=== PATIENT | male | born 1950 | race Caucasian/White ===

== ENCOUNTER 2023-05-23 15:32 | Observation (INO) | payer MEDICARE, SELFPAY ==
[2023-05-23] VITALS (13 sets, daily range): BP systolic 115–142; BP diastolic 53–77; PULSE 65–92; RESP 16–20; TEMP 36.4–36.8; O2SAT 93–99; BMI 28.5
--- NOTE | ~2023-05-23 | CT_ITS ---
Non-contrast CT scan of the Abdomen and Pelvis Clinical indication: Right ureteral stone Technique: 2.5 mm axial scans were obtained through the abdomen and pelvis without intravenous or or al contrast. Dose reduction technique was used on this scan by utilizing automated exposure control a nd iterative reconstruction technique. The dose-length product (DLP) was 1402.46 mGy-cm. Findings: Images through the lung bases reveal minimal bibasilar atelectatic change. There is a 3 mm stone at the mid right ureter (axial image 120), with mild right hydronephrosis is le jett. Multiple bilateral nonobstructing renal stones are present otherwise, measuring up to 1.1 cm in diameter in the right kidney, and 7 mm in diameter and the left kidney. There is right perinephric st randing. No left ureteral stone or left hydronephrosis. The liver, spleen, pancreas, gallbladder, and adrenals appear normal. There are mild atherosclerotic changes of the aorta. There is no evidence of bowel obstruction. Normal appendix. Images through the pelvis were performed. There is no evidence of ascites or lymphadenopathy. Urinary bladder unremarkable. Prostate gland and seminal vesicles are unremarkable. Impression: 3 mm mid right ureteral stone with mild right hydronephrosis. Multiple additional bilateral nonobstructing renal stones, as detailed above. Reviewed, dictated and finalized at location . Impression: 3 mm mid right ureteral stone with mild right hydronephrosis. Multiple additional bilateral nonobstructing renal stones, as detailed above.
--- NOTE | ~2023-05-23 | XR_ITS ---
Supine and upright views of the abdomen Clinical history: Right ureteral stone Findings: Bowel gas pattern is nonspecific. No evidence for obstruction or free air. There are probab le right renal stones measuring up to 9 mm. Osseous structures are intact. Impression: Right renal stones, as detailed above. Reviewed, dictated and finalized at [facility]. Impression: Right renal stones, as detailed above.
--- NOTE | ~2023-05-23 | XR_ITS ---
EXAMINATION: XR retrograde pyelo w/stent RT DATE: 05/23/2023 16:15 CDT INDICATION: RT SIDE SPECIAL . TECHNIQUE: 6 fluoroscopic images of the abdomen and pelvis were obtained during right retrograde pyel ography with stent placement performed by the surgeon. I was not present in the operating room. Fluor oscopy exposure time was 39.6 seconds. DAP [id number] [id number]. COMPARISON: CT abdomen and pelvis, same date FINDINGS: Catheter and wire access into the right collecting system. Post stent placement the proximal coil is located within the right renal pelvis. Imaging of the distal coil not provided. IMPRESSION: Fluoroscopic documentation of right retrograde pyelography with stent placement. Please refer to the operative note for complete procedural details . Reviewed, dictated and finalized at location [facility]. IMPRESSION: Fluoroscopic documentation of right retrograde pyelography with stent placement . Please refer to the operative note for complete procedural details .
--- NOTE | 2023-05-23 00:08 | ADMGEN ---
This patient, Josie Sifuentes, was admitted to Medical Room 255-01. Patient/family oriented to hospital policies and general routines including ID bracelet, bed and alarms, visiting hours, pain management, procedures, bathroom and other care routines, personal items, smoking policy, room service/diet, and visiting hours. Information on how to activate the Rapid Response Team has been discussed. Patient/Family are encouraged to report perceived risks to care and to ask questions if they do not understand what they are told or what they should do.
[2023-05-23] MEDS: HYDROmorphone HCL INJ (*CRX) 1 MG/ML SYR IV PUSH ×2 (04:00→08:22)
[2023-05-23] MEDS: SODIUM CHLORIDE 0.9% IV 1,000 ML 75 ML IV CONT ×2 (04:00→08:35)
[2023-05-23 07:22] LABS: Basophils Absolute Auto 0.1 K/mm3 (0.0-0.1); Basophils Percent Auto 0.7 % (0.2-1.2); Eosinophils Absolute Auto 0.3 K/mm3 (0-0.3); Eosinophils Percent Auto 2.4 % (0-4.4); Hematocrit 38.7 % (42.0-52.0); Hemoglobin 12.3 g/dL (14.0-18.0); Immature Granulocyte Absolute 0.03 K/mm3 (0.00-0.031); Immature Granulocyte Percent A 0.3 % (0-0.5); Lymphocytes Absolute Auto 1.01 K/mm3 (0.9-3.2); Lymphocytes Percent Auto 9.3 % (18.3-44.2); Mean Corpuscular HGB Conc 31.8 g/dl (32-36); Mean Corpuscular Volume 97.5 fl (80-100); Mean Platelet Volume 10.6 fl (7.4-10.4); Monocytes Absolute Auto 1.5 K/mm3 (0.1-0.6); Monocytes Percent Auto 13.5 % (2.6-8.5); Neutrophils Percent Auto 73.8 % (45.5-73.1); Platelet Count Result 196 k/mm3 (150-375); Red Blood Count 3.97 M/mm3 (4.6-6.20); Red Cell Distribution Width 11.8 % (11.5-14.5); White Blood Count 10.8 K/mm3 (4.5-10.0)
[2023-05-23 07:32] LABS: Anion Gap 6 mmol/L (8-16); Blood Urea Nitrogen 24 mg/dL (9-20); Calcium 9.1 mg/dL (8.4-10.2); Carbon Dioxide 23 mmol/L (22-30); Chloride 107 mmol/L (98-107); Estimated CRCL calculation 39 ml/min; Estimated Glomerular Filt Rate 37; Glucose 119 mg/dL (65-110); Potassium 4.3 mmol/L (3.4-5.0); Sodium 136 mmol/L (137-145)
[2023-05-23 07:34] LABS: Prothrombin Time 13.9 Seconds (11.1-14.7)
[2023-05-23 07:35] LABS: Partial Thromboplastin Time 24.5 SECONDS (22.3-36.8)
--- NOTE | 2023-05-23 07:49 | PM.IMHP ---
H&P: HPI History of Present Illness Date/Time: 05/23/23 07:49 Chief Complaint: flank pain Narrative: 73 year old male with h/o HF p/w flank pain at outlying facility found to have kidney stone. He was transferred to our facility for urology consultation and care. He was taken to the OR by urology for cystoscopy and eval for stent placement. No fevers, chills, NVD, CP, SOB. Review of Systems Review of Systems: 12 point review of systems was assessed and was negative except as noted in the HPI [facility] Past Medical History Medical History (Updated 05/23/23 @ 16:47 by Mounika Patel DO) Atrial fibrillation CAD (coronary artery disease) CHF (congestive heart failure) EF 35% Diabetes type 2, controlled Hyperlipidemia Hypertension Family History Family History Father Sepsis Mother Breast cancer Social History Social History Smoking status: Former smoker Tobacco type: cigarettes Smoking end date: 05/23/23 Alcohol intake: never Substance use: never Lack of Transportation: No Lack of Food: Never True Current Housing: I Have Housing Concerned About Future Housing: No Difficulty Paying Gas/Electric Bills: No Difficulty Paying for Meds: No Currently Unemployed: No Education: Master's Degree or Higher Difficulty w/ Childcare or Family Care: No Spiritual care concerns: No Meds Home Medications and Allergies Home Medications Medication Instructions Recorded Confirmed Type Centrum Silver 1 tablet PO DAILY 05/23/23 05/23/23 History ProAir HFA 2 puff inhalation HS 05/23/23 05/23/23 History aspirin 81 mg tablet 81 mg PO DAILY 05/23/23 05/23/23 History atorvastatin 40 mg tablet 40 mg PO HS 05/23/23 05/23/23 History carvedilol 12.5 mg tablet 12.5 mg PO BID 05/23/23 05/23/23 History lorazepam 0.5 mg tablet 0.5 mg PO PRN PRN sleep/anxiety 05/23/23 05/23/23 History metformin 500 mg tablet,extended 1,000 mg PO BID 05/23/23 05/23/23 History release 24 hr montelukast 10 mg tablet 10 mg PO HS 05/23/23 05/23/23 History nitroglycerin 0.4 mg sublingual 0.4 mg sublingual PRN PRN Chest 05/23/23 05/23/23 History tablet Pain ropinirole 0.25 mg tablet 0.25 mg PO HS 05/23/23 05/23/23 History sacubitril 24 mg-valsartan 26 mg 0.5 tablet PO BID 05/23/23 05/23/23 History tablet (Entresto) spironolactone 25 mg tablet 12.5 mg PO DAILY 05/23/23 05/23/23 History zinc gluconate 50 mg tablet 50 mg PO DAILY 05/23/23 05/23/23 History Allergies Allergy/AdvReac Type Severity Reaction Status Date / Time No Known Allergies Allergy Verified 05/23/23 04:47 Vital Signs Vital Signs - 24 hr 05/23/23 00:53 05/23/23 04:45 05/23/23 05:00 Temperature 98.0 F Pulse Rate 66 66 Respiratory Rate 20 20 Blood Pressure 142/71 H Pulse Oximetry 98 98 Oxygen Delivery Room Air Nasal Cannula Oxygen Flow Rate 1 05/23/23 05:55 Temperature 98.2 F Pulse Rate 79 Respiratory Rate 16 Blood Pressure 121/65 Pulse Oximetry 93 Oxygen Delivery Oxygen Flow Rate Exam Narrative: General: No acute distress, alert and oriented per baseline HEENT: Atraumatic, normocephalic, mucous membranes moist CV: Regular rate and rhythm, S1, S2 Lungs: Clear to auscultation bilaterally, no rales or crackles noted, no wheezes, good air entry Abdomen: Soft, nontender, nondistended Extremities: Normal to inspection Skin: No rashes noted, no lesions or wounds seen Psych: Euthymic, normal affect H&P: Results Labs Labs: [facility] 05/23/23 07:09 Sodium 136 L Potassium 4.3 Chloride 107 Carbon Dioxide 23 BUN 24 H Creatinine 1.80 H Glucose 119 H Calcium 9.1 Assessment and Plan Assessment and plan (1) Right ureteral calculus: Code(s): N20.1 - Calculus of ureter Status: Acute Assessment and Plan: Appreciate urological consultation, in cystosc
[2023-05-23] MEDS: DEXTROSE 5%/0.45% SOD CHL 1,000 ML 100 ML IV CONT (08:15)
[2023-05-23 08:21] LABS: Glucose Point of Care 130 mg/dl (65-105)
[2023-05-23] MEDS: carvediloL 12.5 MG TABLET PO ×2 (09:08→17:45)
[2023-05-23 13:13] LABS: Glucose Point of Care 134 mg/dl (65-105)
--- NOTE | 2023-05-23 14:05 | PC.NURSE ---
To OR via stretcher.
--- NOTE | 2023-05-23 14:23 | WPDANESEPPF ---
Anes - Initial Pre Proc Eval Procedure: Operation Date: 05/23/23 16:30 Proposed Procedures p Cystoscopy, Right Ureteroscopy, Possible Right Retrograde Pyelogram, Possible Right Stone Extraction, Possible Right Stent Placement, Possible Holmium Laser Procedure - Arturo Tamayo MD Date/Time: 05/23/23 14:23 Surgeon: Klaus Hurley MD Pre Op Diagnosis: JEOVANY, Retained Kidney Stone Patient Data Age: 73 Gender: M Height: 1.88 m Weight: 100.9 kg Last Vital Signs Temp 36.8 C 05/23/23 05:55 Pulse 80 05/23/23 09:08 Resp 16 05/23/23 08:22 BP 121/65 05/23/23 05:55 Pulse Ox 93 05/23/23 08:22 O2 Del Method Nasal Cannula 05/23/23 08:22 O2 Flow Rate 1 05/23/23 08:22 Allergies Allergy/AdvReac Type Severity Reaction Status Date / Time No Known Allergies Allergy Verified 05/23/23 04:47 Home Medications Medication Instructions Recorded Confirmed Type Centrum Silver 1 tablet PO DAILY 05/23/23 05/23/23 History ProAir HFA 2 puff inhalation HS 05/23/23 05/23/23 History aspirin 81 mg tablet 81 mg PO DAILY 05/23/23 05/23/23 History atorvastatin 40 mg tablet 40 mg PO HS 05/23/23 05/23/23 History carvedilol 12.5 mg tablet 12.5 mg PO BID 05/23/23 05/23/23 History lorazepam 0.5 mg tablet 0.5 mg PO PRN PRN sleep/anxiety 05/23/23 05/23/23 History metformin 500 mg tablet,extended 1,000 mg PO BID 05/23/23 05/23/23 History release 24 hr montelukast 10 mg tablet 10 mg PO HS 05/23/23 05/23/23 History nitroglycerin 0.4 mg sublingual 0.4 mg sublingual PRN PRN Chest 05/23/23 05/23/23 History tablet Pain ropinirole 0.25 mg tablet 0.25 mg PO HS 05/23/23 05/23/23 History sacubitril 24 mg-valsartan 26 mg 0.5 tablet PO BID 05/23/23 05/23/23 History tablet (Entresto) spironolactone 25 mg tablet 12.5 mg PO DAILY 05/23/23 05/23/23 History zinc gluconate 50 mg tablet 50 mg PO DAILY 05/23/23 05/23/23 History Laboratory Tests 05/23/23 05/23/23 05/23/23 07:09 08:09 13:09 WBC 10.8 H K/mm3 (4.5-10.0) RBC 3.97 L M/mm3 (4.6-6.20) Hgb 12.3 L g/dL (14.0-18.0) Hct 38.7 L % (42.0-52.0) MCV 97.5 fl (80-100) MCH 31.0 pg (26-34) MCHC 31.8 L g/dl (32-36) RDW 11.8 % (11.5-14.5) Plt Count 196 k/mm3 (150-375) MPV 10.6 H fl (7.4-10.4) Immature Gran % (Auto) 0.3 % (0-0.5) Neut % (Auto) 73.8 H % (45.5-73.1) Lymph % (Auto) 9.3 L % (18.3-44.2) [place] % (Auto) 13.5 H % (2.6-8.5) Eos % (Auto) 2.4 % (0-4.4) Baso % (Auto) 0.7 % (0.2-1.2) Lymph # (Auto) 1.01 K/mm3 (0.9-3.2) [place] # (Auto) 1.5 H K/mm3 (0.1-0.6) Eos # (Auto) 0.3 K/mm3 (0-0.3) Baso # (Auto) 0.1 K/mm3 (0.0-0.1) Abs Immat Gran (auto) 0.03 K/mm3 (0.00-0.031) Absolute Neuts (auto) 8.0 H K/mm3 (1.3-6.7) Absolute Nucleated RBC 0.0 K/mm3 (0.0-0.012) Nucleated RBC % 0.0 % (0.0-0.2) PT 13.9 Seconds (11.1-14.7) INR 1.0 APTT 24.5 SECONDS (22.3-36.8) Sodium 136 L mmol/L (137-145) Potassium 4.3 mmol/L (3.4-5.0) Chloride 107 mmol/L (98-107) Carbon Dioxide 23 mmol/L (22-30) Anion Gap 6 L mmol/L (8-16) BUN 24 H mg/dL (9-20) Creatinine 1.80 H mg/dL (0.7-1.3) Estim Creat Clear Calc 39 ml/min Estimated GFR 37 L (59 - ) Glucose 119 H mg/dL (65-110) POC Capillary Glucose 130 H mg/dl 134 H mg/dl (65-105) (65-105) Calcium 9.1 mg/dL (8.4-10.2) Patient hx anesthesia problems: none Family hx anesthesia problems: none Results Review: All pre-operative results and documents have been reviewed as part of the pre-operative evaluation. [facility] Past Medical History Medical History (Updated 05/23/23 @ 14:25 by Clay Carballo
[2023-05-23] MEDS: LACTATED RINGERS 1,000 ML 30 ML IV CONT (14:35)
[2023-05-23] MEDS: fentaNYL CITRATE INJ (*CRX) 100 MCG/2 ML VIAL 25 MCG IV PUSH (14:36)
--- NOTE | 2023-05-23 15:10 | WPDHPUPDATE1 ---
History and Physical Update Update Date/Time: 05/23/23 15:10 History and Physical has been reviewed, including an updated exam of the patient. There are NO changes in the patient's condition. Risks, benefits, and alternatives have been discussed and questions answered. Patient agrees to proceed with procedure. Proceed with cystoscopy, right retrograde, right ureteroscopy with stone extraction, laser, stent placement.
--- NOTE | 2023-05-23 15:11 | PM.IMHP ---
H&P: HPI History of Present Illness Date/Time: 05/23/23 15:11 Chief Complaint: right ureteral calculus with colic. Narrative: 73 year old male transferred from outside facility with an obstructing right 3 mm ureteral stone. Difficult to control pain. Review of Systems Review of Systems: All systems reviewed & are unremarkable except as noted in HPI and below PMFSH Past Medical History Medical History Atrial fibrillation CAD (coronary artery disease) CHF (congestive heart failure) EF 35% Diabetes type 2, controlled Hyperlipidemia Hypertension Family History Family History Father Sepsis Mother Breast cancer Social History Social History Smoking status: Former smoker Tobacco type: cigarettes Smoking end date: 05/23/23 Alcohol intake: never Substance use: never Lack of Transportation: No Lack of Food: Never True Current Housing: I Have Housing Concerned About Future Housing: No Difficulty Paying Gas/Electric Bills: No Difficulty Paying for Meds: No Currently Unemployed: No Education: Master's Degree or Higher Difficulty w/ Childcare or Family Care: No Spiritual care concerns: No Meds Home Medications and Allergies Home Medications Medication Instructions Recorded Confirmed Type Centrum Silver 1 tablet PO DAILY 05/23/23 05/23/23 History ProAir HFA 2 puff inhalation HS 05/23/23 05/23/23 History aspirin 81 mg tablet 81 mg PO DAILY 05/23/23 05/23/23 History atorvastatin 40 mg tablet 40 mg PO HS 05/23/23 05/23/23 History carvedilol 12.5 mg tablet 12.5 mg PO BID 05/23/23 05/23/23 History lorazepam 0.5 mg tablet 0.5 mg PO PRN PRN sleep/anxiety 05/23/23 05/23/23 History metformin 500 mg tablet,extended 1,000 mg PO BID 05/23/23 05/23/23 History release 24 hr montelukast 10 mg tablet 10 mg PO HS 05/23/23 05/23/23 History nitroglycerin 0.4 mg sublingual 0.4 mg sublingual PRN PRN Chest 05/23/23 05/23/23 History tablet Pain ropinirole 0.25 mg tablet 0.25 mg PO HS 05/23/23 05/23/23 History sacubitril 24 mg-valsartan 26 mg 0.5 tablet PO BID 05/23/23 05/23/23 History tablet (Entresto) spironolactone 25 mg tablet 12.5 mg PO DAILY 05/23/23 05/23/23 History zinc gluconate 50 mg tablet 50 mg PO DAILY 05/23/23 05/23/23 History Allergies Allergy/AdvReac Type Severity Reaction Status Date / Time No Known Allergies Allergy Verified 05/23/23 04:47 Vital Signs Vital Signs - 24 hr 05/23/23 00:53 05/23/23 04:45 05/23/23 05:00 Temperature 36.7 C Pulse Rate 66 66 Respiratory Rate 20 20 Blood Pressure 142/71 H Pulse Oximetry 98 98 Oxygen Delivery Room Air Nasal Cannula Oxygen Flow Rate 1 05/23/23 05:55 05/23/23 09:08 05/23/23 08:22 Temperature 36.8 C Pulse Rate 79 80 80 Respiratory Rate 16 16 Blood Pressure 121/65 Pulse Oximetry 93 93 Oxygen Delivery Nasal Cannula Oxygen Flow Rate 1 05/23/23 14:30 Temperature 36.5 C Pulse Rate 65 Respiratory Rate 16 Blood Pressure 115/66 Pulse Oximetry 97 Oxygen Delivery Room Air Oxygen Flow Rate Exam Const: General: cooperative; No comfortable Eyes: General: appearance normal, both eyes and all related structures Neck: Neck: normal visual inspection Chest: Chest palpation & inspection: normal inspection of the chest Resp: Effort & Inspection: normal respiratory effort Cardio: Rate: regular rate Rhythm: regular rhythm GI: Inspection: normal to inspection H&P: Results Labs Labs: Short CBC 05/23/23 Range/Units 07:09 WBC 10.8 H (4.5-10.0) K/mm3 Hgb 12.3 L (14.0-18.0) g/dL Hct 38.7 L (42.0-52.0) % Plt Count 196 (150-375) k/mm3 [facility] 05/23/23 07:09 Sodium 136 L Potassium 4.3 Chloride 107 Carbon Dioxide 23 BUN 24 H Creatinine 1.80 H Glucose 119 H Calcium 9.1
[2023-05-23] MEDS: ceFAZolin 2 GM/D5W 50 ML 2 GM/50 ML BAG IVPB (15:59)
[2023-05-23] MEDS: LIDOCAINE HCL 2% GEL UROJET 10 ML PKG MUCOUS MEM (16:13)
--- NOTE | 2023-05-23 16:34 | P.OP_ITS ---
Procedure Note - Detailed Date of Procedure 05/23/23 Pre-op Diagnosis Right ureteral stone-3 mm Post-op Diagnosis Same Procedure Performed Cystoscopy, right retrograde pyelogram, right ureteroscopy with stone extraction, right ureteral stent placement 4.8 Prydeinig contour Surgeon Arturo Tamayo MD Anesthesia General Description of Procedure Patient is taken the operative suite correctly identified. Once anesthesia was obtained was placed in dorsal lithotomy position and prepped and draped usual sterile fashion. Nineteen Prydeinig scope inserted the bladder. He has some mild lateral lobe hypertrophy. Upon entering the bladder there are no tumors noted. The right ureteral orifice was cannulated with a guidewire. It met resistance in the proximal ureter at the level of the stone. I placed a ureteral catheter in and then was able to manipulate a Sensor wire past the stone. The ureter was dilated with an 8/10 dilator and then a ureteral access sheath was placed. Mini flexible ureteral scope was inserted. The stone was visualized and grasped with an escape basket and retrieved its entirety. Pyelogram was then performed to confirm placement of the stent. 4.8 Prydeinig contour stent was then placed with the proximal end coiled in the renal pelvis and the distal in the bladder. Bladder was drained. 2% viscous lidocaine was then inserted into the urethra patient is taken recovery stable condition. He will follow-up in 1 week for stent removal. This completes dictation on this patient. Please send a copy of this to my office Drains Yes Packing No Pathology Yes Complications No immediate complications Condition Stable Disposition PACU
[2023-05-23 17:20] LABS: Glucose Point of Care 144 mg/dl (65-105)
--- NOTE | 2023-05-23 17:36 | PC.NURSE ---
Returned from OR via stretcher. Family at bedside. Voiding without difficulty.
[2023-05-23] MEDS: SACUBITRIL/VALSARTAN 12-13 MG TABLET 1 TAB PO (17:45)
[2023-05-23] MEDS: SPIRONOLACTONE 12.5 MG TABLET PO (17:46)
[2023-05-23 17:47] LABS: Basophils Absolute Auto 0.1 K/mm3 (0.0-0.1); Basophils Percent Auto 0.6 % (0.2-1.2); Eosinophils Absolute Auto 0.4 K/mm3 (0-0.3); Eosinophils Percent Auto 3.1 % (0-4.4); Hematocrit 41.7 % (42.0-52.0); Hemoglobin 13.1 g/dL (14.0-18.0); Immature Granulocyte Absolute 0.05 K/mm3 (0.00-0.031); Immature Granulocyte Percent A 0.4 % (0-0.5); Lymphocytes Absolute Auto 0.68 K/mm3 (0.9-3.2); Lymphocytes Percent Auto 5.8 % (18.3-44.2); Mean Corpuscular HGB Conc 31.4 g/dl (32-36); Mean Corpuscular Hemoglobin 31.5 pg (26-34); Mean Corpuscular Volume 100.2 fl (80-100); Mean Platelet Volume 10.4 fl (7.4-10.4); Monocytes Percent Auto 8.2 % (2.6-8.5); Neutrophils Absolute Auto 9.5 K/mm3 (1.3-6.7); Neutrophils Percent Auto 81.9 % (45.5-73.1); Platelet Count Result 184 k/mm3 (150-375); Red Blood Count 4.16 M/mm3 (4.6-6.20); Red Cell Distribution Width 11.9 % (11.5-14.5); White Blood Count 11.7 K/mm3 (4.5-10.0)
[2023-05-23 18:12] LABS: Alanine Aminotransferase 23 U/L (6-50); Albumin Level 3.7 g/dL (3.5-5.1); Alkaline Phosphatase 74 U/L (38-126); Anion Gap 9 mmol/L (8-16); Aspartate Amino Transferase 22 U/L (17-59); Blood Urea Nitrogen 23 mg/dL (9-20); Calcium 9.2 mg/dL (8.4-10.2); Carbon Dioxide 22 mmol/L (22-30); Chloride 104 mmol/L (98-107); Estimated CRCL calculation 41 ml/min; Estimated Glomerular Filt Rate 40; Glucose 136 mg/dL (65-110); Potassium 4.3 mmol/L (3.4-5.0); Sodium 135 mmol/L (137-145)
[2023-05-23] MEDS: ALBUTEROL SULFATE (*SP) AEROSOL 1 PUFF 2 PUFF INHALATION (20:32)
[2023-05-23] MEDS: ATORVASTATIN 40 MG TABLET PO (20:58)
[2023-05-23] MEDS: MONTELUKAST SODIUM 10 MG TABLET PO (20:58)
[2023-05-23] MEDS: rOPINIRole HCL 0.25 MG TABLET PO (20:58)
--- NOTE | 2023-05-23 21:36 | PC.NURSE ---
Pt scheduled to have Entresto at 2100, but was just given a dose at 1745 due to pt having surgery earlier today. Will non-administer Entresto for tonight.
[2023-05-23] MEDS: LORazepam (*CRX) 0.5 MG TABLET PO (21:40)
[2023-05-24 00:14] LABS: Glucose Point of Care 219 mg/dl (65-105)
[2023-05-24] MEDS: INSULIN ASPART (*BKC) 100 UNITS/ML SUB-Q (01:10)
[2023-05-24 04:34] VITALS: BP 116/55; PULSE 62; RESP 16; TEMP 36.7; O2SAT 96
[2023-05-24 05:07] LABS: Basophils Percent Auto 0.2 % (0.2-1.2); Eosinophils Percent Auto 0.1 % (0-4.4); Hematocrit 38.7 % (42.0-52.0); Hemoglobin 12.7 g/dL (14.0-18.0); Immature Granulocyte Absolute 0.04 K/mm3 (0.00-0.031); Immature Granulocyte Percent A 0.5 % (0-0.5); Lymphocytes Absolute Auto 0.44 K/mm3 (0.9-3.2); Lymphocytes Percent Auto 5.3 % (18.3-44.2); Mean Corpuscular HGB Conc 32.8 g/dl (32-36); Mean Corpuscular Hemoglobin 31.5 pg (26-34); Mean Platelet Volume 10.4 fl (7.4-10.4); Monocytes Absolute Auto 0.6 K/mm3 (0.1-0.6); Monocytes Percent Auto 7.6 % (2.6-8.5); Neutrophils Absolute Auto 7.2 K/mm3 (1.3-6.7); Neutrophils Percent Auto 86.3 % (45.5-73.1); Platelet Count Result 181 k/mm3 (150-375); Red Blood Count 4.03 M/mm3 (4.6-6.20); Red Cell Distribution Width 11.6 % (11.5-14.5); White Blood Count 8.3 K/mm3 (4.5-10.0)
[2023-05-24 05:16] LABS: Alanine Aminotransferase 20 U/L (6-50); Albumin Level 3.5 g/dL (3.5-5.1); Alkaline Phosphatase 66 U/L (38-126); Anion Gap 8 mmol/L (8-16); Aspartate Amino Transferase 18 U/L (17-59); Bilirubin,Total 0.7 mg/dL (0.2-1.3); Blood Urea Nitrogen 23 mg/dL (9-20); Calcium 9.3 mg/dL (8.4-10.2); Carbon Dioxide 23 mmol/L (22-30); Chloride 104 mmol/L (98-107); Estimated CRCL calculation 49 ml/min; Estimated Glomerular Filt Rate 50; Glucose 157 mg/dL (65-110); Potassium 4.5 mmol/L (3.4-5.0); Sodium 135 mmol/L (137-145)
[2023-05-24 05:40] LABS: Glucose Point of Care 146 mg/dl (65-105)
--- NOTE | 2023-05-24 07:43 | PM.IMPN ---
Progress Note: A&P Assessment and Plan (1) Right ureteral calculus: Code(s): N20.1 - Calculus of ureter Status: Acute Assessment and Plan: Appreciate urological consultation, in cystoscopy 05/23 (2) Hypertension: Code(s): I10 - Essential (primary) hypertension Status: Acute Assessment and Plan: Continue home medications, blood pressure reviewed 05/23 (3) Diabetes type 2, controlled: Code(s): E11.9 - Type 2 diabetes mellitus without complications Status: Acute Assessment and Plan: Continue home medications, check A1c, Accu-Cheks, sliding scale insulin, blood glucose reviewed 05/23 (4) CAD (coronary artery disease): Code(s): I25.10 - Atherosclerotic heart disease of [place] coronary artery without angina pectoris Status: Acute Assessment and Plan: Continue home medications, stable (5) Hyperlipidemia: Code(s): E78.5 - Hyperlipidemia, unspecified Status: Acute Assessment and Plan: Continue home medication (6) CHF (congestive heart failure): Code(s): I50.9 - Heart failure, unspecified Status: Acute Assessment and Plan: EF 30-35%, monitor fluid status closely (7) Atrial fibrillation: Code(s): I48.91 - Unspecified atrial fibrillation Status: Acute Assessment and Plan: Rate controlled (8) Restless legs: Code(s): G25.81 - Restless legs syndrome Status: Acute Assessment and Plan: Continue medication Plan DVT prophylaxis with SCDs GI prophylaxis not indicated Code status full code Subjective Date/time seen: 05/24/23 07:43 Exam Narrative: General: No acute distress, alert and oriented per baseline HEENT: Atraumatic, normocephalic, mucous membranes moist CV: Regular rate and rhythm, S1, S2 Lungs: Clear to auscultation bilaterally, no rales or crackles noted, no wheezes, good air entry Abdomen: Soft, nontender, nondistended Extremities: Normal to inspection Skin: No rashes noted, no lesions or wounds seen Psych: Euthymic, normal affect Objective Data Vital Signs Vital Signs: Vital Signs - 24 hr 05/23/23 09:08 05/23/23 08:22 05/23/23 14:30 Temperature 97.7 F Pulse Rate 80 80 65 Respiratory Rate 16 16 Blood Pressure 115/66 Pulse Oximetry 93 97 Oxygen Delivery Nasal Cannula Room Air Oxygen Flow Rate 1 05/23/23 16:38 05/23/23 16:55 05/23/23 17:45 Temperature 97.9 F Pulse Rate 72 67 68 Respiratory Rate 16 16 Blood Pressure 125/77 126/71 Pulse Oximetry 99 96 Oxygen Delivery Simple Face Mask Room Air Oxygen Flow Rate 6 05/23/23 17:30 05/23/23 17:45 05/23/23 18:25 Temperature 97.9 F 98.0 F 97.5 F L Pulse Rate 68 69 83 Respiratory Rate 17 17 17 Blood Pressure 127/62 126/53 L 120/56 L Pulse Oximetry 94 96 97 Oxygen Delivery Oxygen Flow Rate 05/23/23 17:35 05/23/23 19:45 05/23/23 20:45 Temperature 97.9 F Pulse Rate 92 Respiratory Rate 18 16 Blood Pressure 120/61 Pulse Oximetry 97 96 Oxygen Delivery Room Air Room Air Oxygen Flow Rate 05/24/23 04:34 Temperature 98.1 F Pulse Rate 62 Respiratory Rate 16 Blood Pressure 116/55 L Pulse Oximetry 96 Oxygen Delivery Oxygen Flow Rate Intake/Output Intake/Output: Intake & Output 05/21/23 05/22/23 05/23/23 05/24/23 23:59 23:59 23:59 23:59 Intake Total 1570 Output Total 400 700 Balance 1170 -700 Meds/Results Medications: Active Medications Generic Name Dose Route Start Last Admin Trade Name Freq PRN Reason Stop Dose Admin Al Hydrox/Mg Hydrox/Simethicone 30 ml 05/23/23 06:38 Mag Hydrox/Al Hydrox/Simeth 30 Ml Udc PO QID PRN Dyspepsia Albuterol 2 puff 05/23/23 21:00 05/23/23 20:32 Albuterol Sulfate (*Sp) Aerosol 1 Puff INHALATION 06/22/23 20:59 2 puff HS LUX Administration Aspirin 81 mg 05/23/23 09:00 05/23/23 09:39 Aspirin 81 Mg Enteric Tablet PO 06/22/23 08:59 Not Given D
--- NOTE | 2023-05-24 07:45 | PM.DS ---
DS: Admitting Diagnosis Discharge Date 05/24/23 Admitting Diagnosis flank pain DS: Discharge Diagnosis Discharge Diagnosis (1) Right ureteral calculus: Code(s): N20.1 - Calculus of ureter Status: Acute (2) Hypertension: Code(s): I10 - Essential (primary) hypertension Status: Acute (3) Diabetes type 2, controlled: Code(s): E11.9 - Type 2 diabetes mellitus without complications Status: Acute (4) CAD (coronary artery disease): Code(s): I25.10 - Atherosclerotic heart disease of [place] coronary artery without angina pectoris Status: Acute (5) Hyperlipidemia: Code(s): E78.5 - Hyperlipidemia, unspecified Status: Acute (6) CHF (congestive heart failure): Code(s): I50.9 - Heart failure, unspecified Status: Acute (7) Atrial fibrillation: Code(s): I48.91 - Unspecified atrial fibrillation Status: Acute (8) Restless legs: Code(s): G25.81 - Restless legs syndrome Status: Acute DS: Summary Hospital Course Hospital Course: 73-year-old male with history of heart failure, diabetes, hypertension hyperlipidemia as well as kidney stones is presenting with flank pain and dysuria concerning for recurrent kidney stone. He presented to the outlying facility [place] and was found to have a kidney stone. Therefore he was transferred here for cystoscopy and possible stent placement. Urology was consulted and took him for a pyelogram. Right stent was placed. Patient was stable and discharged with outpatient follow-up in 1 week for possible stent removal. Please see above and med rec for details. Time Spent with Patient Time attestation: Total time spent providing and/or coordinating discharge services: Exam Narrative: General: No acute distress, alert and oriented per baseline HEENT: Atraumatic, normocephalic, mucous membranes moist CV: Regular rate and rhythm, S1, S2 Lungs: Clear to auscultation bilaterally, no rales or crackles noted, no wheezes, good air entry Abdomen: Soft, nontender, nondistended Extremities: Normal to inspection Skin: No rashes noted, no lesions or wounds seen Psych: Euthymic, normal affect DS: Data Data Completed and Pending Pending studies at discharge: Pending at discharge 05/23/23 16:29 Surgical [PTH] Routine Labs on day of discharge: Labs from last 24 hours 05/24/23 05/24/23 05/24/23 05:21 04:59 00:10 WBC 8.3 RBC 4.03 L Hgb 12.7 L Hct 38.7 L MCV 96.0 MCH 31.5 MCHC 32.8 RDW 11.6 Plt Count 181 MPV 10.4 Immature Gran % (Auto) 0.5 Neut % (Auto) 86.3 H Lymph % (Auto) 5.3 L [place] % (Auto) 7.6 Eos % (Auto) 0.1 Baso % (Auto) 0.2 Lymph # (Auto) 0.44 L [place] # (Auto) 0.6 Eos # (Auto) 0.0 Baso # (Auto) 0.0 Abs Immat Gran (auto) 0.04 H Absolute Neuts (auto) 7.2 H Absolute Nucleated RBC 0.0 Nucleated RBC % 0.0 Sodium 135 L Potassium 4.5 Chloride 104 Carbon Dioxide 23 Anion Gap 8 BUN 23 H Creatinine 1.40 H Estim Creat Clear Calc 49 Estimated GFR 50 L Glucose 157 H POC Capillary Glucose 146 H 219 H Calcium 9.3 Total Bilirubin 0.7 AST 18 ALT 20 Alkaline Phosphatase 66 Total Protein 7.0 Albumin 3.5 05/23/23 05/23/23 05/23/23 17:38 17:14 13:09 WBC 11.7 H RBC 4.16 L Hgb 13.1 L Hct 41.7 L MCV 100.2 H MCH 31.5 MCHC 31.4 L RDW 11.9 Plt Count 184 MPV 10.4 Immature Gran % (Auto) 0.4 Neut % (Auto) 81.9 H Lymph % (Auto) 5.8 L [place] % (Auto) 8.2 Eos % (Auto) 3.1 Baso % (Auto) 0.6 Lymph # (Auto) 0.68 L [place] # (Auto) 1.0 H Eos # (Auto) 0.4 H Baso # (Auto) 0.1 Abs Immat Gran (auto) 0.05 H Absolute Neuts (auto) 9.5 H Absolute Nucleated RBC 0.0 Nucleated RBC % 0.0 Sodium 135 L Potassium 4.3 Chloride 104 Carbon Dioxide 22 Anion Gap 9 BUN 23 H Creatin
[2023-05-24 08:56] VITALS: PULSE 86
[2023-05-24] MEDS: carvediloL 12.5 MG TABLET PO (08:56)
[2023-05-24] MEDS: ASPIRIN 81 MG ENTERIC TABLET PO (08:57)
[2023-05-24] MEDS: MULTIVITAMINS /C LUTEIN (CENTRUM SILVER) TABLET *BKC 1 TAB PO (08:58)
[2023-05-24] MEDS: ZINC SULFATE 220 MG CAPSULE PO (08:59)
[2023-05-24] MEDS: SACUBITRIL/VALSARTAN 12-13 MG TABLET 1 TAB PO (09:00)
[2023-05-24] MEDS: SPIRONOLACTONE 12.5 MG TABLET PO (10:02)
== END 2023-05-24 11:16 | disposition home or self-care (01) ==
PROVIDERS: Internal Medicine; Urology; Admitting Provider Student in an Organized Health Care Education/Training Program; PCP Family Medicine; Visit Provider Student in an Organized Health Care Education/Training Program
PROC: (CPT 52352; principal; 2023-05-23 16:30)
DX: N13.2 Hydronephrosis with renal and ureteral calculous obstruction (principal); I11.0 Hypertensive heart disease with heart failure; E11.9 Type 2 diabetes mellitus without complications; I25.10 Atherosclerotic heart disease of native coronary artery without angina pectoris; E78.5 Hyperlipidemia, unspecified; I50.9 Heart failure, unspecified; I48.91 Unspecified atrial fibrillation; G25.81 Restless legs syndrome; E66.3 Overweight; Z68.28 Body mass index [BMI] 28.0-28.9, adult; Z87.891 Personal history of nicotine dependence; Z79.51 Long term (current) use of inhaled steroids; Z79.82 Long term (current) use of aspirin; Z79.84 Long term (current) use of oral hypoglycemic drugs
CPT/HCPCS: 52320; 52332; 36415; 74018; 74176; 74420; 80048; 80053; 82365; 82948; 85025; 85610; 85730; 88300; 94640; 96374; A9270; C1758; C1769; C1894; C2617; G0378; G0379; J0690; J1100; J1170; J1815; J2405; J2704; J3010; J7030; J7120; Q9966

== ENCOUNTER 2023-07-08 11:02 | Outpatient (CLI) | payer MEDICARE, SELFPAY ==
--- NOTE | ~2023-07-08 | XR_ITS ---
EXAMINATION: XR abdomen/kub 1V INDICATION: Right ureteral stone TECHNIQUE: Supine views of the abdomen were obtained on 2 radiographs. COMPARISON: 05/23/2023 FINDINGS: The 3 mm right ureteral stone described on the comparison CT is not definitely identified. Stones of the right kidney measure up to 10 mm. Stones of the left kidney lower pole measure up to 6 mm. The visualized lung bases are clear. There are phleboliths of the pelvis. A bone island is noted in the right acetabulum. There is an enchondroma of the proximal left femur. IMPRESSION: 1. Bilateral nephrolithiasis. Previously described right ureteral stone not definitely seen. Reviewed, dictated and finalized at location L. IMPRESSION: 1. Bilateral nephrolithiasis. Previously described right ureteral stone not def initely seen.
== END 2023-07-08 11:03 | disposition home or self-care (01) ==
PROVIDERS: PCP Family Medicine; Visit Provider Urology
DX: N20.0 Calculus of kidney (principal)
CPT/HCPCS: 74018

== ENCOUNTER 2023-10-01 12:34 | Outpatient (CLI) | payer MEDICARE, SELFPAY ==
--- NOTE | ~2023-10-01 | XR_ITS ---
EXAMINATION: XR abdomen/kub 1V INDICATION: Right ureteral stone follow-up TECHNIQUE: Supine views of the abdomen were obtained on 2 radiographs. COMPARISON: 07/08/2023 FINDINGS: There are stable stones measuring 10 mm and 9 mm in the right kidney. Stones of the left ki dney lower pole measure up to 6 mm. There are phleboliths of the pelvis. A bone island is noted in th e right acetabulum. There is an enchondroma of the proximal left femur. The bowel gas pattern is norm al. There is elevation of the right hemidiaphragm. IMPRESSION: 1. Bilateral nephrolithiasis. Reviewed, dictated and finalized at location B. [employer]
== END 2023-10-01 12:35 | disposition home or self-care (01) ==
PROVIDERS: PCP Family Medicine; Visit Provider Urology
DX: N20.0 Calculus of kidney (principal); N20.1 Calculus of ureter
CPT/HCPCS: 74018